=== PATIENT | male | born 1955 | race Caucasian/White ===

== ENCOUNTER 2020-03-26 10:26 | Inpatient (IN) | payer MEDICARE, BC ==
[~2020-03-26] VITALS: Ht 185.4 cm; Wt 104.6 kg
[2020-03-26] MEDS ORDERED: OMNIPAQUE ORAL SOLN 500ml 12mg/ml PO ONE (10:42)
[2020-03-26] MEDS ORDERED: SODIUM CHLORIDE 0.9% 1,000 ML IV ONE (10:45)
[2020-03-26 11:17] LABS: Basophils # (auto) 0 10 ^3/uL (0-0.2); Basophils % (auto) 0.5 % (0.0-2.0); Eosinophils # (auto) 0 10 ^3/uL (0-0.8); Eosinophils % (auto) 0.4 % (0.0-7.0); Hematocrit 52.5 % (41.0-53.0); Hemoglobin 17.8 g/dL (13.5-17.5); Lymphocytes # (auto) 2.4 10 ^3/uL (0.4-5.4); Lymphocytes % (auto) 28.4 % (10.0-50.0); Mean Corpuscular Hemoglobin 33.1 pg (28.0-32.0); Mean Corpuscular Hgb Conc. 33.9 g/dL (32.0-36.0); Mean Corpuscular Volume 97.7 fL (80.0-100.0); Monocytes # (auto) 1.4 10 ^3/uL (0-1.3); Monocytes % (auto) 17.2 % (0.0-12.0); Neutrophils # (auto) 4.5 10 ^3/uL (1.6-8.6); Neutrophils % (auto) 53.5 % (37.0-80.0); Nucleated Red Blood Cells % 0.2 %; Platelet Count (auto) 270 10^3/uL (140-450); Red Blood Cells 5.38 10^6/uL (4.5-5.90); White Blood Cell 8.4 10^3/uL (4.4-10.8)
[2020-03-26 11:35] LABS: Albumin 3.8 g/dL (3.4-5.0); Calcium 8.8 mg/dL (8.5-10.1); Potassium 3.7 mmol/L (3.5-5.1)
[2020-03-26 11:41] LABS: BUN/Creatinine Ratio 23.8; Bilirubin, Total 2.4 mg/dL (0.2-1.0); Total Protein 7.4 g/dL (6.4-8.2)
[2020-03-26] MEDS ORDERED: NITROGLYCERIN 0.4 MG SL TAB SL PRN (12:15)
[2020-03-26] MEDS ORDERED: METOCLOPRAMIDE HCL 5MG/ml INJ 2ml VIAL IV PRN (12:15)
[2020-03-26] MEDS ORDERED: HYDROmorphone HCL 2 MG/ML VL IV PRN (12:15)
[2020-03-26] MEDS ORDERED: TEMAZEPAM 15 MG CAP PO PRN (12:15)
[2020-03-26] MEDS ORDERED: MORPHINE SULF INJ 2 MG/ML SYRINGE 1ML IV PRN ×2 (12:15)
[2020-03-26] MEDS ORDERED: SODIUM CHLORIDE 0.9% 1,000 ML IV SCH (12:15)
[2020-03-26] MEDS ORDERED: ALUM & MAG HYDROX-SIMETH LIQ(MAALOX) 30 ML PO PRN (12:15)
[2020-03-26] MEDS ORDERED: IOHEXOL 300 MG/ML 100ML BOTTLE IJ ONE (13:42)
[2020-03-26 17:00] VITALS: BP 117/76
[2020-03-26 22:00] VITALS: BP 110/73
[2020-03-26 22:23] LABS: Urine Bacteria NONE SEEN /hpf (None Seen); Urine Blood Negative /uL (Negative); Urine WBC 1 /hpf (0 - 3)
[2020-03-26 22:26] LABS: Urine Specific Gravity > 1.050 (1.001-1.035)
[2020-03-26] MEDS: SODIUM CHLORIDE 0.9% 1,000 ML IV SCH (23:15)
[2020-03-27 05:00] VITALS: BP 103/73
[2020-03-27 06:06] LABS: Basophils # (auto) 0.1 10 ^3/uL (0-0.2); Basophils % (auto) 0.9 % (0.0-2.0); Eosinophils # (auto) 0.1 10 ^3/uL (0-0.8); Eosinophils % (auto) 1.5 % (0.0-7.0); Hematocrit 43.1 % (41.0-53.0); Hemoglobin 14.9 g/dL (13.5-17.5); Lymphocytes # (auto) 1.7 10 ^3/uL (0.4-5.4); Mean Corpuscular Hemoglobin 33.5 pg (28.0-32.0); Mean Corpuscular Hgb Conc. 34.5 g/dL (32.0-36.0); Mean Corpuscular Volume 96.9 fL (80.0-100.0); Monocytes % (auto) 13.8 % (0.0-12.0); Neutrophils # (auto) 4.3 10 ^3/uL (1.6-8.6); Neutrophils % (auto) 59.8 % (37.0-80.0); Nucleated Red Blood Cells % 0.1 %; Platelet Count (auto) 208 10^3/uL (140-450); Red Blood Cells 4.44 10^6/uL (4.5-5.90); Red Cell Distribution Width 12.7 % (11.8-14.3); White Blood Cell 7.3 10^3/uL (4.4-10.8)
[2020-03-27 06:29] LABS: INR 1.07 (0.9-1.15); Partial Thromboplastin Time 28.5 sec (23.0-31.2)
[2020-03-27 06:37] LABS: Potassium 3.6 mmol/L (3.5-5.1)
[2020-03-27 07:06] LABS: Albumin 3.1 g/dL (3.4-5.0); BUN/Creatinine Ratio 24.4; Bilirubin, Total 1.5 mg/dL (0.2-1.0); Calcium 7.9 mg/dL (8.5-10.1); Total Protein 5.8 g/dL (6.4-8.2)
[2020-03-27] MEDS ORDERED: POVIDONE IODINE 10 % TOPICAL OINT 30GM TOP ONE (07:33)
[2020-03-27 09:00] VITALS: BP 101/64
[2020-03-27] MEDS ORDERED: ceFAZolin 1GM VL IV ONE (09:15)
[2020-03-27] MEDS: SODIUM CHLORIDE 0.9% 1,000 ML IV SCH ×2 (09:30→16:21)
[2020-03-27] MEDS ORDERED: SUCCINYLCHOLINE CHLORIDE 20 MG/ML 10ML VIAL IV ONE (10:36)
[2020-03-27] MEDS ORDERED: LIDOCAINE 1% (LOCAL ANESTH.) PF 5ml SDV ONE (10:36)
[2020-03-27] MEDS ORDERED: MIDAZOLAM HCL 1MG/1ML-2 ML VIAL ONE (10:40)
[2020-03-27] MEDS ORDERED: ROCURONIUM 10MG/ML 10ML VIAL IV ONE (10:43)
[2020-03-27] MEDS ORDERED: ETOMIDATE (2MG/ML) 20ML VIAL IV ONE (10:43)
[2020-03-27] MEDS ORDERED: BUPIVACAINE W/ EPINEPH 0.25% INJ 50ML MDV ONE (10:55)
[2020-03-27] MEDS ORDERED: cefTRIAXone 1GM/50ML D5W 50 ML IV ONE (11:04)
[2020-03-27] MEDS ORDERED: NALOXONE HCL 0.4 MG/ML VIAL IV PRN (11:15)
[2020-03-27] MEDS ORDERED: HYDROmorphone HCL 2 MG/ML VL IV PRN ×2 (11:15)
[2020-03-27] MEDS ORDERED: ONDANSETRON HCL 4 MG/2 ML VIAL IV PRN (11:15)
[2020-03-27] MEDS ORDERED: fentaNYL CITRATE 100 MCG/2 ML VL ONE (11:19)
[2020-03-27] MEDS ORDERED: ONDANSETRON HCL 4 MG/2 ML VIAL IV ONE (12:58)
[2020-03-27] MEDS ORDERED: HYDROmorphone HCL 2 MG/ML VL IV ONE (12:58)
[2020-03-27] MEDS: ACETAMINOPHEN 325 MG TAB PO PRN (16:21)
[2020-03-27 16:48] VITALS: BP 122/73
[2020-03-27 22:47] VITALS: BP 118/56
[2020-03-28] MEDS: SODIUM CHLORIDE 0.9% 1,000 ML IV SCH ×2 (02:22→15:15)
[2020-03-28 06:21] VITALS: BP 120/74
[2020-03-28] MEDS: ACETAMINOPHEN 325 MG TAB PO PRN (06:27)
[2020-03-28 09:00] VITALS: BP 121/74
[2020-03-28 09:54] LABS: Basophils # (auto) 0 10 ^3/uL (0-0.2); Basophils % (auto) 0.1 % (0.0-2.0); Eosinophils # (auto) 0 10 ^3/uL (0-0.8); Eosinophils % (auto) 0.2 % (0.0-7.0); Hemoglobin 14.4 g/dL (13.5-17.5); Lymphocytes # (auto) 1.1 10 ^3/uL (0.4-5.4); Lymphocytes % (auto) 13.1 % (10.0-50.0); Mean Corpuscular Hemoglobin 33.5 pg (28.0-32.0); Mean Corpuscular Hgb Conc. 34.4 g/dL (32.0-36.0); Mean Corpuscular Volume 97.5 fL (80.0-100.0); Monocytes # (auto) 0.8 10 ^3/uL (0-1.3); Monocytes % (auto) 10.5 % (0.0-12.0); Neutrophils # (auto) 6.2 10 ^3/uL (1.6-8.6); Neutrophils % (auto) 76.1 % (37.0-80.0); Platelet Count (auto) 208 10^3/uL (140-450); Red Cell Distribution Width 12.6 % (11.8-14.3); White Blood Cell 8.1 10^3/uL (4.4-10.8)
[2020-03-28 10:14] LABS: Calcium 8.2 mg/dL (8.5-10.1); Potassium 3.5 mmol/L (3.5-5.1)
[2020-03-28 10:17] LABS: BUN/Creatinine Ratio 14.8; Bilirubin, Total 1.9 mg/dL (0.2-1.0); Total Protein 6.2 g/dL (6.4-8.2)
[2020-03-28 13:00] VITALS: BP 139/87
[2020-03-28 17:00] VITALS: BP 137/88
[2020-03-28 22:00] VITALS: BP 128/83
[2020-03-29] MEDS: SODIUM CHLORIDE 0.9% 1,000 ML IV SCH ×2 (01:15→11:15)
[2020-03-29 05:00] VITALS: BP 138/81
[2020-03-29 09:10] VITALS: BP 142/76
[2020-03-29 11:08] LABS: Basophils # (auto) 0 10 ^3/uL (0-0.2); Basophils % (auto) 0.5 % (0.0-2.0); Eosinophils # (auto) 0.1 10 ^3/uL (0-0.8); Eosinophils % (auto) 0.6 % (0.0-7.0); Hematocrit 48.2 % (41.0-53.0); Hemoglobin 16.5 g/dL (13.5-17.5); Lymphocytes # (auto) 1.3 10 ^3/uL (0.4-5.4); Lymphocytes % (auto) 13.3 % (10.0-50.0); Mean Corpuscular Hemoglobin 33.3 pg (28.0-32.0); Mean Corpuscular Hgb Conc. 34.2 g/dL (32.0-36.0); Mean Corpuscular Volume 97.4 fL (80.0-100.0); Monocytes # (auto) 1.1 10 ^3/uL (0-1.3); Monocytes % (auto) 11.1 % (0.0-12.0); Neutrophils # (auto) 7.1 10 ^3/uL (1.6-8.6); Neutrophils % (auto) 74.5 % (37.0-80.0); Nucleated Red Blood Cells % 0.1 %; Platelet Count (auto) 259 10^3/uL (140-450); Red Blood Cells 4.95 10^6/uL (4.5-5.90); White Blood Cell 9.5 10^3/uL (4.4-10.8)
[2020-03-29 11:31] LABS: Potassium 3.4 mmol/L (3.5-5.1)
[2020-03-29 11:37] LABS: Albumin 3.4 g/dL (3.4-5.0); BUN/Creatinine Ratio 10.2; Bilirubin, Total 1.8 mg/dL (0.2-1.0); Calcium 9.4 mg/dL (8.5-10.1); Total Protein 7.5 g/dL (6.4-8.2)
[2020-03-29] MEDS ORDERED: POTASSIUM EFFERVESENT TAB 25 MEQ PO ONE (12:15)
[2020-03-29 14:30] VITALS: BP 146/87
== END 2020-03-29 13:45 | disposition home or self-care (01) | DRG 351 ==
LOC: ER 10:26 → TELE-WESTW 10:27
PROVIDERS: ADMIT Internal Medicine; ATTEND Internal Medicine
PROC: 0YQ50ZZ Repair Right Inguinal Region, Open Approach (ICD-10-PCS; principal; 2020-03-27 11:05)
DX: K40.31 Unilateral inguinal hernia, with obstruction, without gangrene, recurrent (principal); J98.11 Atelectasis; E87.1 Hypo-osmolality and hyponatremia; E44.0 Moderate protein-calorie malnutrition; E66.9 Obesity, unspecified; Z68.30 Body mass index [BMI] 30.0-30.9, adult; Z71.3 Dietary counseling and surveillance; R10.9 Unspecified abdominal pain; I70.0 Atherosclerosis of aorta; E78.5 Hyperlipidemia, unspecified; R73.03 Prediabetes; R79.89 Other specified abnormal findings of blood chemistry; E87.6 Hypokalemia; E88.09 Other disorders of plasma-protein metabolism, not elsewhere classified; E86.0 Dehydration
CPT/HCPCS: 36415; 71045; 74177; 80053; 80061; 81001; 83036; 83605; 83690; 84443; 85025; 85610; 85730; 93306; 96360; G0378; J0330; J0690; J0696; J2250; J2405

== ENCOUNTER → 2020-05-11 | Outpatient (CLI) | payer MEDICARE, BC ==
[2020-05-11 16:16] LABS: Basophils # (auto) 0.1 10 ^3/uL (0-0.2); Basophils % (auto) 0.3 % (0.0-2.0); Eosinophils # (auto) 0 10 ^3/uL (0-0.8); Hematocrit 47.2 % (41.0-53.0); Hemoglobin 15.9 g/dL (13.5-17.5); Lymphocytes # (auto) 1.6 10 ^3/uL (0.4-5.4); Lymphocytes % (auto) 8.1 % (10.0-50.0); Mean Corpuscular Hemoglobin 32.1 pg (28.0-32.0); Mean Corpuscular Hgb Conc. 33.6 g/dL (32.0-36.0); Mean Corpuscular Volume 95.5 fL (80.0-100.0); Monocytes # (auto) 1.9 10 ^3/uL (0-1.3); Monocytes % (auto) 9.6 % (0.0-12.0); Neutrophils # (auto) 16.4 10 ^3/uL (1.6-8.6); Nucleated Red Blood Cells % 0.1 %; Platelet Count (auto) 275 10^3/uL (140-450); Red Blood Cells 4.95 10^6/uL (4.5-5.90); Red Cell Distribution Width 13.4 % (11.8-14.3)
[2020-05-11 16:37] LABS: INR 1.03 (0.9-1.15); Partial Thromboplastin Time 26.5 sec (23.0-31.2)
[2020-05-11 16:53] LABS: Albumin 4.4 g/dL (3.4-5.0); Potassium 4.1 mmol/L (3.5-5.1)
[2020-05-11 17:05] LABS: Bilirubin, Total 1.6 mg/dL (0.2-1.0); CRP High Sensitivity 2.27 mg/dL (< 0.3); Calcium 9.4 mg/dL (8.5-10.1); Total Protein 7.8 g/dL (6.4-8.2)
[2020-05-12 09:27] LABS: Urine Bacteria NONE SEEN /hpf (None Seen); Urine Blood 1+ /uL (Negative); Urine Mucus FEW (None Seen); Urine Specific Gravity 1.018 (1.001-1.035); Urine WBC 8 /hpf (0 - 3)
== END | disposition home or self-care (01) ==
LOC: LAB 15:50
PROVIDERS: ATTEND Internal Medicine
DX: Z11.59 Encounter for screening for other viral diseases (principal)
CPT/HCPCS: 36415; 80053; 81001; 82728; 83615; 85025; 85379; 85610; 85652; 85730; 86141

== ENCOUNTER → 2020-05-11 | Outpatient (CLI) | payer MEDICARE, BC | END | disposition home or self-care (01) | LOC: LAB 17:20 | PROVIDERS: ATTEND Nurse Practitioner Family | DX: Z20.828 Contact with and (suspected) exposure to other viral communicable diseases (principal) | CPT/HCPCS: 36415; 87426 ==

== ENCOUNTER 2020-05-12 09:12 | Inpatient (IN) | payer MEDICARE, BC ==
[~2020-05-12] VITALS: Ht 188 cm; Wt 100.4 kg
[2020-05-12 10:41] VITALS: BP 104/68
[2020-05-12] MEDS ORDERED: NITROGLYCERIN 0.4 MG SL TAB SL PRN (11:15)
[2020-05-12] MEDS ORDERED: METOCLOPRAMIDE HCL 5MG/ml INJ 2ml VIAL IV PRN (11:15)
[2020-05-12] MEDS ORDERED: MORPHINE SULF INJ 2 MG/ML SYRINGE 1ML IV PRN ×2 (11:15)
[2020-05-12] MEDS: SODIUM CHLORIDE 0.9% 1,000 ML IV SCH ×2 (11:15→21:30)
[2020-05-12] MEDS ORDERED: TEMAZEPAM 15 MG CAP PO PRN (11:15)
[2020-05-12] MEDS ORDERED: LORazepam 0.5 MG TAB PO PRN (11:15)
[2020-05-12] MEDS ORDERED: HYDROcodone-ACET 5/325MG TAB PO PRN (11:15)
[2020-05-12] MEDS ORDERED: ALUM & MAG HYDROX-SIMETH LIQ(MAALOX) 30 ML PO PRN (11:15)
[2020-05-12 11:58] LABS: Basophils # (auto) 0.1 10 ^3/uL (0-0.2); Basophils % (auto) 0.5 % (0.0-2.0); Eosinophils # (auto) 0 10 ^3/uL (0-0.8); Hematocrit 42.5 % (41.0-53.0); Hemoglobin 14.6 g/dL (13.5-17.5); Lymphocytes # (auto) 1.5 10 ^3/uL (0.4-5.4); Lymphocytes % (auto) 8.7 % (10.0-50.0); Mean Corpuscular Hemoglobin 32.8 pg (28.0-32.0); Mean Corpuscular Hgb Conc. 34.4 g/dL (32.0-36.0); Mean Corpuscular Volume 95.3 fL (80.0-100.0); Monocytes # (auto) 1.7 10 ^3/uL (0-1.3); Monocytes % (auto) 9.7 % (0.0-12.0); Neutrophils # (auto) 13.9 10 ^3/uL (1.6-8.6); Neutrophils % (auto) 81.1 % (37.0-80.0); Nucleated Red Blood Cells % 0.1 %; Platelet Count (auto) 226 10^3/uL (140-450); Red Blood Cells 4.46 10^6/uL (4.5-5.90); Red Cell Distribution Width 13.4 % (11.8-14.3); White Blood Cell 17.2 10^3/uL (4.4-10.8)
[2020-05-12] MEDS ORDERED: GASTROGRAFIN 120 ML SOL ONE (12:03)
[2020-05-12 12:13] LABS: Albumin 3.9 g/dL (3.4-5.0); Calcium 9.3 mg/dL (8.5-10.1); Magnesium 2.5 mg/dL (1.6-2.6); Potassium 3.9 mmol/L (3.5-5.1)
[2020-05-12 12:20] LABS: INR 1.06 (0.9-1.15); Partial Thromboplastin Time 28.8 sec (23.0-31.2)
[2020-05-12 12:22] LABS: BUN/Creatinine Ratio 12.7; Bilirubin, Total 1.7 mg/dL (0.2-1.0); Total Protein 7.1 g/dL (6.4-8.2)
[2020-05-12 13:47] VITALS: BP 110/78
[2020-05-12] MEDS: MEROPENEM 1GM IVPB 100 ML IV SCH ×2 (14:48→22:10)
[2020-05-12] MEDS: LINEZOLID 600MG/300ML 300 ML IV SCH (14:48)
[2020-05-12] MEDS: HYDROmorphone HCL 2 MG/ML VL IV PRN ×2 (14:56→19:06)
[2020-05-12 16:36] VITALS: BP 101/69
[2020-05-12 17:41] LABS: Urine Bacteria FEW /hpf (None Seen); Urine Blood 1+ /uL (Negative); Urine Mucus FEW (None Seen); Urine Specific Gravity 1.016 (1.001-1.035); Urine WBC 2 /hpf (0 - 3)
[2020-05-12] MEDS ORDERED: TAMSULOSIN HYDROCHLORIDE 0.4 MG CAP PO ONE (18:00)
[2020-05-12] MEDS ORDERED: SODIUM CHLORIDE 0.9% 1,000 ML IV ONE (18:30)
[2020-05-12] MEDS ORDERED: MANNITOL FTV 25% 12.5 GM/50 ML 50 ML IV ONE (18:30)
--- NOTE | 2020-05-12 18:44 | NUR ---
SANTOS 15 FG PLACED WITH NO SIGNS AND SYMPTOMS OF DISTRESS NOTED OR TRAUMA. PATIENT TOLERATED WELL. PATIENT INITIAL URINE OUTPUT 1500ML AND STILL DRAINING. URINE BACTERIAL CULTURE SENT OUT.
[2020-05-12 22:00] VITALS: BP 94/62
[2020-05-13] MEDS: LINEZOLID 600MG/300ML 300 ML IV SCH (00:30)
[2020-05-13 04:42] VITALS: BP 101/68
[2020-05-13 05:44] LABS: Basophils # (auto) 0 10 ^3/uL (0-0.2); Basophils % (auto) 0.4 % (0.0-2.0); Eosinophils # (auto) 0 10 ^3/uL (0-0.8); Eosinophils % (auto) 0.5 % (0.0-7.0); Hematocrit 37.5 % (41.0-53.0); Hemoglobin 12.9 g/dL (13.5-17.5); Lymphocytes # (auto) 1.3 10 ^3/uL (0.4-5.4); Lymphocytes % (auto) 15.6 % (10.0-50.0); Mean Corpuscular Hgb Conc. 34.4 g/dL (32.0-36.0); Mean Corpuscular Volume 95.9 fL (80.0-100.0); Monocytes % (auto) 12.2 % (0.0-12.0); Neutrophils # (auto) 6.1 10 ^3/uL (1.6-8.6); Neutrophils % (auto) 71.3 % (37.0-80.0); Platelet Count (auto) 197 10^3/uL (140-450); Red Blood Cells 3.91 10^6/uL (4.5-5.90); Red Cell Distribution Width 13.3 % (11.8-14.3); White Blood Cell 8.5 10^3/uL (4.4-10.8)
[2020-05-13 06:07] LABS: BUN/Creatinine Ratio 20.5; Calcium 8.3 mg/dL (8.5-10.1); Potassium 3.4 mmol/L (3.5-5.1)
--- NOTE | 2020-05-13 07:40 | NUR ---
Opening Shift Note Assumed care of patient, awake and alert. No S/S of distress/SOB or pain. Instructed on POC and to call for assist PRN, will continue to monitor for changes Q1hr and PRN. Bed locked in lowest position with two side rails up and call light in reach.
[2020-05-13 08:50] LABS: Uric Acid 6.7 mg/dL (3.5-7.2)
[2020-05-13 09:01] VITALS: BP 94/59
[2020-05-13] MEDS ORDERED: levoFLOXacin 500 MG TAB PO ONE (12:00)
[2020-05-13] MEDS ORDERED: POTASSIUM CHL 20 Meq TABLET PO ONE (12:00)
[2020-05-13 13:13] VITALS: BP 100/58
[2020-05-13 16:21] VITALS: BP 112/74
[2020-05-13] MEDS ORDERED: TAMSULOSIN HYDROCHLORIDE 0.4 MG CAP PO SCH (18:00)
[2020-05-13 21:50] VITALS: BP 111/74
[2020-05-13] MEDS: SODIUM CHLORIDE 0.9% 1,000 ML IV SCH (22:15)
[2020-05-14 05:13] VITALS: BP 110/74
[2020-05-14 06:05] LABS: Basophils # (auto) 0 10 ^3/uL (0-0.2); Basophils % (auto) 0.3 % (0.0-2.0); Eosinophils # (auto) 0.2 10 ^3/uL (0-0.8); Eosinophils % (auto) 2.6 % (0.0-7.0); Hematocrit 36.8 % (41.0-53.0); Hemoglobin 12.4 g/dL (13.5-17.5); Lymphocytes # (auto) 1.6 10 ^3/uL (0.4-5.4); Lymphocytes % (auto) 25.7 % (10.0-50.0); Mean Corpuscular Hemoglobin 32.6 pg (28.0-32.0); Mean Corpuscular Hgb Conc. 33.7 g/dL (32.0-36.0); Mean Corpuscular Volume 96.8 fL (80.0-100.0); Monocytes # (auto) 0.7 10 ^3/uL (0-1.3); Monocytes % (auto) 10.6 % (0.0-12.0); Neutrophils # (auto) 3.7 10 ^3/uL (1.6-8.6); Neutrophils % (auto) 60.8 % (37.0-80.0); Nucleated Red Blood Cells % 0.1 %; Platelet Count (auto) 192 10^3/uL (140-450); Red Cell Distribution Width 13.2 % (11.8-14.3); White Blood Cell 6.2 10^3/uL (4.4-10.8)
[2020-05-14 06:24] LABS: Albumin 2.6 g/dL (3.4-5.0); Calcium 8.5 mg/dL (8.5-10.1); Potassium 3.4 mmol/L (3.5-5.1)
[2020-05-14 06:29] LABS: BUN/Creatinine Ratio 21.8; Bilirubin, Total 0.7 mg/dL (0.2-1.0); Total Protein 5.3 g/dL (6.4-8.2)
--- NOTE | 2020-05-14 07:30 | NUR ---
Opening Shift Note Assumed care of patient, awake and alert. No S/S of distress/SOB or pain on room air. Instructed on POC and to call for assist PRN, will continue to monitor for changes Q1hr and PRN. Bed in low and locked position, rails up x2, no-slip socks on.
[2020-05-14] MEDS ORDERED: POTASSIUM CHL 20 Meq TABLET PO ONE ×2 (08:00→10:45)
--- NOTE | 2020-05-14 08:00 | NUR ---
Opening Shift Note Assumed care of patient, awake and alert. No S/S of distress/SOB or pain. Bed in lowest position side rails up x2 and call light within reach. Right forearm 22 G IV clean, dry, and patent with no signs of redness or swelling. Instructed on POC and to call for assist PRN, will continue to monitor for changes Q1hr and PRN.
[2020-05-14 08:23] VITALS: BP 100/62
[2020-05-14] MEDS ORDERED: levoFLOXacin 500 MG TAB PO SCH (10:00)
--- NOTE | 2020-05-14 10:30 | NUR ---
DR VELASQUEZ AT BEDSIDE
[2020-05-14 11:33] VITALS: BP 100/62
[2020-05-14 13:08] VITALS: BP 124/72
--- NOTE | 2020-05-14 13:43 | NUR ---
DISCHARGE Discharge instructions given as ordered. Encourage to follow up with PMD as instructed. All questions and concerns addressed. Patient verbalized understanding. Medication reconciliation form completed and copy given to patient. Patient discharged with F[place]l catheter and leg bag. Patient education given on usage of leg bag at home. IV removed with catheter intact, pressure dressing applied. Patient taken to vehicle with all personal belongings, accompanied by staff. No distress noted at time of departure.
== END 2020-05-14 13:37 | disposition home or self-care (01) | DRG 871 ==
LOC: TELE-CENTR 09:12 → CENTRAL 22:30
PROVIDERS: ADMIT Internal Medicine; ATTEND Internal Medicine
DX: A41.9 Sepsis, unspecified organism (principal); N17.0 Acute kidney failure with tubular necrosis; N13.6 Pyonephrosis; E87.6 Hypokalemia; N40.1 Benign prostatic hyperplasia with lower urinary tract symptoms; R33.8 Other retention of urine
CPT/HCPCS: 36415; 74176; 74250; 76775; 80048; 80053; 81001; 82728; 83605; 83615; 83735; 83970; 84100; 84154; 84550; 85025; 85379; 85610; 85652; 85730; 86141; 87040; 87086; 87426; G0378; J2185

== ENCOUNTER 2021-02-12 11:57 | Day surgery (SDC) | payer MEDICARE, BC ==
[2021-02-10 15:23] LABS: Basophils # (auto) 0 10 ^3/uL (0-0.2); Basophils % (auto) 0.5 % (0.0-2.0); Eosinophils # (auto) 0.1 10 ^3/uL (0-0.8); Eosinophils % (auto) 1.2 % (0.0-7.0); Hematocrit 44.1 % (41.0-53.0); Hemoglobin 15.4 g/dL (13.5-17.5); Lymphocytes # (auto) 2.5 10 ^3/uL (0.4-5.4); Lymphocytes % (auto) 36.7 % (10.0-50.0); Mean Corpuscular Hemoglobin 33.1 pg (28.0-32.0); Mean Corpuscular Hgb Conc. 34.9 g/dL (32.0-36.0); Mean Corpuscular Volume 94.7 fL (80.0-100.0); Monocytes # (auto) 0.5 10 ^3/uL (0-1.3); Monocytes % (auto) 7.4 % (0.0-12.0); Neutrophils # (auto) 3.7 10 ^3/uL (1.6-8.6); Neutrophils % (auto) 54.2 % (37.0-80.0); Red Blood Cells 4.65 10^6/uL (4.5-5.90); Red Cell Distribution Width 12.9 % (11.8-14.3); White Blood Cell 6.8 10^3/uL (4.4-10.8)
[2021-02-10 15:27] LABS: Urine Bacteria NONE SEEN /hpf (None Seen); Urine Blood Negative /uL (Negative); Urine Specific Gravity 1.003 (1.001-1.035); Urine WBC 1 /hpf (0 - 3)
[2021-02-10 15:39] LABS: BUN/Creatinine Ratio 14.8; Calcium 8.8 mg/dL (8.5-10.1)
[2021-02-10 15:41] LABS: Bilirubin, Total 0.5 mg/dL (0.2-1.0); Total Protein 7.2 g/dL (6.4-8.2)
[~2021-02-12] VITALS: Ht 188 cm; Wt 95.3 kg
[2021-02-12] MEDS: fentaNYL CITRATE 100 MCG/2 ML VL ONE ×2 (14:38→14:41)
[2021-02-12] MEDS: MIDAZOLAM HCL 5 MG/ML-1ML VIAL ONE ×3 (14:38→14:44)
[2021-02-12] MEDS: diphenhdrAMINE HCL 50 MG/1 ML VL ONE ×2 (14:38→14:41)
[2021-02-12 15:20] VITALS: BP 102/71
== END 2021-02-12 15:30 | disposition home or self-care (01) ==
LOC: GI 11:57
PROVIDERS: ATTEND Internal Medicine Gastroenterology
DX: Z12.11 Encounter for screening for malignant neoplasm of colon (principal); K63.89 Other specified diseases of intestine; K64.8 Other hemorrhoids; Z98.890 Other specified postprocedural states; Z79.899 Other long term (current) drug therapy; Z98.52 Vasectomy status; Z20.822 Contact with and (suspected) exposure to COVID-19
CPT/HCPCS: 36415; 45385; 80053; 81001; 85025; 88305; J1200; J2250; J3010; J7030; U0003; 99153; G0500

== ENCOUNTER → 2021-03-17 | Day surgery (SDC) | payer MEDICARE, BC ==
[2021-03-15 15:07] LABS: Urine WBC None Seen /hpf (0 - 3)
[2021-03-15 15:13] LABS: Urine Bacteria NONE SEEN /hpf (None Seen); Urine Blood Negative /uL (Negative); Urine Specific Gravity 1.015 (1.001-1.035)
[2021-03-15 15:29] LABS: INR 1.05 (0.9-1.15); Partial Thromboplastin Time 27.2 sec (23.6-33.0)
[2021-03-15 15:37] LABS: Albumin 3.8 g/dL (3.4-5.0); BUN/Creatinine Ratio 13.3; Calcium 8.7 mg/dL (8.5-10.1)
[2021-03-15 15:40] LABS: Bilirubin, Total 0.6 mg/dL (0.2-1.0)
[2021-03-15 15:55] LABS: Basophils # (auto) 0 10 ^3/uL (0-0.2); Basophils % (auto) 0.5 % (0.0-2.0); Eosinophils # (auto) 0.1 10 ^3/uL (0-0.8); Eosinophils % (auto) 1.4 % (0.0-7.0); Hematocrit 44.9 % (41.0-53.0); Hemoglobin 15.1 g/dL (13.5-17.5); Lymphocytes # (auto) 2.4 10 ^3/uL (0.4-5.4); Lymphocytes % (auto) 38.4 % (10.0-50.0); Mean Corpuscular Hemoglobin 31.8 pg (28.0-32.0); Mean Corpuscular Hgb Conc. 33.5 g/dL (32.0-36.0); Mean Corpuscular Volume 94.9 fL (80.0-100.0); Monocytes # (auto) 0.5 10 ^3/uL (0-1.3); Monocytes % (auto) 7.4 % (0.0-12.0); Neutrophils # (auto) 3.3 10 ^3/uL (1.6-8.6); Neutrophils % (auto) 52.3 % (37.0-80.0); Nucleated Red Blood Cells % 0.1 %; Red Blood Cells 4.74 10^6/uL (4.5-5.90); Red Cell Distribution Width 13.2 % (11.8-14.3); White Blood Cell 6.3 10^3/uL (4.4-10.8)
[~2021-03-17] VITALS: Ht 188 cm; Wt 98.9 kg
[~2021-03-17] MED LIST: BUPIVACAINE W/ EPINEPH 0.25% INJ 50ML MDV ONE; DexAMETHasone SOD PHOS 10MG/1ML VIAL INJ ONE; FAMOTIDINE (10MG/ML) 2ML VL IV ONE; GLYCOPYRROLATE 0.2 MG/ML 1ML VIAL ONE; HYDROmorphone HCL 2 MG/ML VL IV PRN; HYDROmorphone HCL 2 MG/ML VL ONE; KETOROLAC TROMETH 30 MG/ML 1ML VIAL ONE; LIDOCAINE 2% (LOCAL ANESTH.) PF 5ml SDV ONE; MIDAZOLAM HCL 2MG/2ML 2ml VIAL (1mg/ml) ONE; ONDANSETRON HCL 4 MG/2 ML VIAL IV PRN; ONDANSETRON HCL 4 MG/2 ML VIAL ONE; PROPOFOL 10 MG/ML 20 ML IV ONE; ROCURONIUM 10MG/ML 10ML VIAL IV ONE; SUCCINYLCHOLINE CHLORIDE 20 MG/ML 10ML VIAL IV ONE; ceFAZolin 1GM/50ML 100 ML IV ONE; ePHEDrine SULFATE 50 MG/ML AMP ONE; fentaNYL CITRATE 100 MCG/2 ML VL ONE
[2021-03-17 09:35] VITALS: BP 109/68
== END | disposition home or self-care (01) ==
LOC: SUR 06:08
PROVIDERS: ATTEND Surgery
DX: K40.90 Unilateral inguinal hernia, without obstruction or gangrene, not specified as recurrent (principal); Z98.890 Other specified postprocedural states; Z79.899 Other long term (current) drug therapy; Z87.891 Personal history of nicotine dependence; Z20.822 Contact with and (suspected) exposure to COVID-19
CPT/HCPCS: 36415; 49505; 80053; 81001; 85025; 85610; 85730; J0330; J0690; J1100; J1170; J1885; J2001; J2250; J2405; J2704; J3010; J3490; Q4140; U0003

== ENCOUNTER → 2022-07-04 | Outpatient (CLI) | payer MEDICARE, BC ==
[2022-07-04 09:23] LABS: Basophils # (auto) 0 10 ^3/uL (0-0.2); Basophils % (auto) 0.8 % (0.0-2.0); Eosinophils # (auto) 0.1 10 ^3/uL (0-0.8); Eosinophils % (auto) 1.6 % (0.0-7.0); Hematocrit 43.5 % (41.0-53.0); Hemoglobin 15.3 g/dL (13.5-17.5); Lymphocytes # (auto) 1.8 10 ^3/uL (0.4-5.4); Lymphocytes % (auto) 36.3 % (10.0-50.0); Mean Corpuscular Hemoglobin 33.6 pg (28.0-32.0); Mean Corpuscular Hgb Conc. 35.2 g/dL (32.0-36.0); Mean Corpuscular Volume 95.6 fL (80.0-100.0); Monocytes # (auto) 0.4 10 ^3/uL (0-1.3); Monocytes % (auto) 7.7 % (0.0-12.0); Neutrophils # (auto) 2.7 10 ^3/uL (1.6-8.6); Neutrophils % (auto) 53.6 % (37.0-80.0); Red Blood Cells 4.55 10^6/uL (4.5-5.90); Red Cell Distribution Width 13.1 % (11.8-14.3)
[2022-07-04 09:35] LABS: Urine Blood Negative /uL (Negative); Urine Specific Gravity 1.015 (1.001-1.035)
[2022-07-04 09:53] LABS: Potassium 4.4 mmol/L (3.5-5.1)
[2022-07-04 10:03] LABS: Albumin 4.2 g/dL (3.4-5.0); BUN/Creatinine Ratio 12.5; Calcium 9.1 mg/dL (8.5-10.1); Total Protein 7.1 g/dL (6.4-8.2)
== END | disposition home or self-care (01) ==
LOC: LAB 08:47
PROVIDERS: ATTEND Internal Medicine
DX: Z12.5 Encounter for screening for malignant neoplasm of prostate (principal); E78.6 Lipoprotein deficiency; R73.9 Hyperglycemia, unspecified; E55.9 Vitamin D deficiency, unspecified; I10 Essential (primary) hypertension; R39.15 Urgency of urination
CPT/HCPCS: 36415; 80053; 80061; 81003; 82306; 83036; 84153; 84443; 85025

== ENCOUNTER → 2022-08-08 | Outpatient (CLI) | payer MEDICARE, BC ==
[2022-08-08 13:00] LABS: Potassium 4.4 mmol/L (3.5-5.1)
[2022-08-08 13:14] LABS: Albumin 4.1 g/dL (3.4-5.0); BUN/Creatinine Ratio 10.9; Bilirubin, Total 0.8 mg/dL (0.2-1.0); Total Protein 7.1 g/dL (6.4-8.2)
== END | disposition home or self-care (01) ==
LOC: LAB 10:34
PROVIDERS: ATTEND Internal Medicine
DX: E78.5 Hyperlipidemia, unspecified (principal)
CPT/HCPCS: 36415; 80053

== ENCOUNTER → 2022-11-28 | Outpatient (CLI) | payer MEDICARE, BC ==
[2022-11-28 09:22] LABS: Basophils # (auto) 0.1 10 ^3/uL (0-0.2); Basophils % (auto) 0.8 % (0.0-2.0); Eosinophils # (auto) 0.1 10 ^3/uL (0-0.8); Eosinophils % (auto) 1.2 % (0.0-7.0); Hematocrit 45.2 % (41.0-53.0); Hemoglobin 15.6 g/dL (13.5-17.5); Lymphocytes # (auto) 2.1 10 ^3/uL (0.4-5.4); Lymphocytes % (auto) 32.4 % (10.0-50.0); Mean Corpuscular Hemoglobin 32.9 pg (28.0-32.0); Mean Corpuscular Hgb Conc. 34.4 g/dL (32.0-36.0); Mean Corpuscular Volume 95.6 fL (80.0-100.0); Monocytes # (auto) 0.5 10 ^3/uL (0-1.3); Monocytes % (auto) 8.3 % (0.0-12.0); Neutrophils # (auto) 3.7 10 ^3/uL (1.6-8.6); Neutrophils % (auto) 57.3 % (37.0-80.0); Nucleated Red Blood Cells % 0.1 %; Red Blood Cells 4.73 10^6/uL (4.5-5.90); Red Cell Distribution Width 12.9 % (11.8-14.3); White Blood Cell 6.4 10^3/uL (4.4-10.8)
[2022-11-28 10:16] LABS: Albumin 4.1 g/dL (3.4-5.0); Calcium 8.8 mg/dL (8.5-10.1); Potassium 4.4 mmol/L (3.5-5.1)
[2022-11-28 10:21] LABS: BUN/Creatinine Ratio 12.6 (10.0-20.0); Bilirubin, Total 1.1 mg/dL (0.2-1.0); Total Protein 7.1 g/dL (6.4-8.2)
== END | disposition home or self-care (01) ==
LOC: LAB 09:02
PROVIDERS: ATTEND Internal Medicine
DX: R73.9 Hyperglycemia, unspecified (principal); E55.9 Vitamin D deficiency, unspecified; Z79.899 Other long term (current) drug therapy
CPT/HCPCS: 36415; 80053; 80061; 83036; 85025